=== PATIENT | female | born 1960 | race Two or more races ===

== ENCOUNTER 2024-09-19 19:30 | Emergency (ER) | payer OTHER ==
[~2024-09-19] VITALS: Ht 160 cm; Wt 88.5 kg
[2024-09-19 20:43] LABS: Urine Bacteria None Seen /hpf (None Seen)
[2024-09-19 20:45] VITALS: TEMP 98.7
[2024-09-19] MEDS: cloNIDine HCL 0.1 MG TAB PO ONE (20:47)
[2024-09-19 20:55] LABS: Urine Blood Negative /uL (Negative); Urine Clarity Clear (Clear); Urine Color Colorless (Yellow); Urine Protein, UAD Negative (Negative); Urine Specific Gravity 1.003 (1.001-1.035); Urine Squamous Epithelial Cell None Seen /hpf (<5); Urine Urobilinogen Normal (Negative); Urine WBC < 1 /HPF (0-5); Urine pH 6.5 (5.0-9.0)
[2024-09-19 21:51] VITALS: PULSE 49; RESP 16; O2SAT 96
--- NOTE | 2024-09-19 23:16 | ED.PDOC ---
History of Present Illness HPI Comments 63 y/o obese F, with a history of anxiety, mitral valve prolapse, and HTN, presents with c/o HTN, today. Patient endorses on noticing her blood pressure being elevated all day, today, with a systolic pressure in the 170's-180's range. She reports on taking 1x "fat burning pill," yesterday. She denies any chest pain, shortness of breath, vision or speech changes, dizziness, or other associated symptoms or modifiers at this time. Chief Complaint: High Blood Pressure Time Seen by MD: 20:10 Reviewed Notes: Nurses Notes, Medications, Allergies Allergies: Coded Allergies: NO KNOWN ALLERGIES (Unverified , 09/19/24) Information Source: Patient Mode of Arrival: Ambulatory Past Medical History PAST MEDICAL HISTORY: Anxiety, HTN Past Medical History (Other): mitral valve prolapse All Other Systems: Reviewed and Negative (Comprehensive systems review obtained and negative except for what is stated in the HPI.) Physical Exam General Appearance: No Apparent Distress, Obese HEENT: Normal ENT Inspection, Pharynx Normal, TMs Normal Neck: Full Range of Motion, Non-Tender, Normal, Normal Inspection Respiratory: Chest Non-Tender, Lungs Clear, No Accessory Muscle Use, No Respiratory Distress, Normal Breath Sounds Cardiovascular: No Edema, No JVD, No Murmur, No Gallop, Normal Peripheral Pulses, Regular Rate/Rhythm Breast Exam: Deferred Gastrointestinal: No Organomegaly, Non Tender, No Pulsatile Mass, Normal Bowel Sounds, Soft Genitalia: Deferred Pelvic: Deferred Rectal: Deferred Extremities: No calf tenderness, Normal capillary refill, Normal inspection, Normal range of motion, Non-tender, No pedal edema Musculoskeletal : Apperance: Normal Neurologic: Alert, cleaning specialist II-XII nml as Tested, No Motor Deficits, Normal Affect, Normal Mood, No Sensory Deficits Cerebellar Function: Normal Reflexes: Normal Skin: Dry, Normal Color, Warm Lymphatic: No Adenopathy Was a procedure done? Was a procedure done?: No Differential Dx Considerations may include: HTN emergency, medication/substance adverse effect X-Ray, Labs, Meds, VS Vital Signs Date Time Temp Pulse Resp B/P (MAP) Pulse Ox O2 Delivery O2 Flow Rate FiO2 09/19/24 21:51 49 16 139/67 (91) 96 09/19/24 21:47 139/67 09/19/24 20:47 166/75 09/19/24 20:45 98.7 65 20 166/75 (105) 95 98.7 09/19/24 20:04 98.7 62 20 199/86 (123) 100 98.7 Lab Test 09/19/24 20:03 Range/Units Urine Color Colorless Yellow Urine Clarity Clear Clear Urine pH 6.5 5.0-9.0 Urine Specific [place] 1.003 1.001-1.035 Urine Protein Negative Negative Urine Ketones Negative Negative Urine Blood Negative Negative /uL Urine Nitrite Negative Negative Urine Bilirubin Negative Negative Urine Urobilinogen Normal Negative mg/dL Urine Leukocyte Esterase Negative Negative /uL Urine RBC None seen 0 - 4 /hpf Urine Microscopic WBC < 1 0-5 /HPF Urine Squamous Epithelial Cells None seen <5 /hpf Urine Bacteria None seen None Seen /hpf Urine Glucose Normal Normal mg/dL Current Medications Medications (Trade) Dose Ordered Sig/Laura Route Start Time Stop Time Status Last Admin Clonidine HCl (Catapres Tablet) 0.1 mg ONCE ONCE PO 09/19/24 20:15 09/19/24 20:16 DC 09/19/24 20:47 Time of 1ST Reevaluation: 20:40 Reevaluation 1ST: Unchanged Patient Education/Counseling: Diagnosis, Treatment Family Education/Counseling: No Family Present Additional Information Previous visit documents reviewed: n/a The following tests were ordered, and results were reviewed by me: UA, EKG Additional Information was gathered from interviewing the following independent historians: n/a I reviewed and agreed with the following test results read by other providers: n/a I discussed treatment and results with medical personnel and: Patient Departure 1 Departure Time of Disposition: 23:36 Impression: Primary Impression: Hypertension Qualified Codes: I10 - Essential (primary) hypertension Disposition: 01 HOME / SELF CARE / HOMELESS Condition: Good Discharged With: Self, Relative Critical Care Note Critical Care Time?: No Stability Stability form required: No Heart Score Heart Score: Heart Score Response (Comments) Value History N/A 0 EKG N/A 0 Age N/A 0 Risk Factors N/A 0 Troponin N/A 0 Total 0 I personally scribed for NISA MCKEON MD ([email or web address]) on 09/19/24 at 23:16. Electronically submitted by Jordy Robles ([email or web address]). NISA MCKEON MD Sep 19, 2024 23:16
[2024-09-19 23:38] VITALS: BP 116/60
--- NOTE | 2024-09-20 11:14 | ECG ---
[facility] Test Date: 2024-09-19 Test Time: 20:07:44 Pat Name: DAMASO GARCIA Department: ER Room: Gender: F Director [employer]: RADHA : 1960 Requested By: INSA MCKEON Order Number: [id number] Reading MD: Yusuf Montanez Measurements Intervals [place] Rate: 59 P: 50 ID: [id number] QRS: -15 QRSD: 98 T: 43 QT: 442 QTc: 438 Interpretive Statements Sinus rhythm Probable left atrial enlargement Abnormal R-wave progression, early transition Left ventricular hypertrophy Minimal ST elevation, inferior leads Baseline wander in lead(s) I,III,aVL Electronically Signed On 09-22-2024 22:04:06 PDT by Yusuf Montanez Please click the below link to view image of tracing.
== END 2024-09-19 23:43 | disposition home or self-care (01) ==
LOC: ER 19:36
DX: I10 Essential (primary) hypertension (principal); F41.9 Anxiety disorder, unspecified; I34.1 Nonrheumatic mitral (valve) prolapse
CPT/HCPCS: 81001; 93005